=== PATIENT | male | born 1960 | race Caucasian/White ===

== ENCOUNTER → 2016-06-30 | Outpatient (CLI) | payer MEDICARE ==
[~2016-06-30] MED LIST: LEVAQUIN500 MG PO; NAPROSYN500 MG PO
== END | disposition home or self-care (01) ==
LOC: CDC 15:35
DX: R94.31 Abnormal electrocardiogram [ECG] [EKG] (principal); I49.9 Cardiac arrhythmia, unspecified; M25.521 Pain in right elbow; M19.021 Primary osteoarthritis, right elbow; M19.041 Primary osteoarthritis, right hand
CPT/HCPCS: 93000